=== PATIENT | female | born 1990 | race Caucasian/White ===

== ENCOUNTER 2017-08-16 17:12 | Emergency (ER) | payer OTHER ==
[~2017-08-16] VITALS: Ht 160 cm; Wt 79.8 kg
[2017-08-16 17:15] VITALS: Ht 160 cm; Wt 79.8 kg
[2017-08-16 18:02] VITALS: BP 144/98
== END 2017-08-16 18:02 | disposition home or self-care (01) ==
LOC: ED 17:12
DX: F41.1 Generalized anxiety disorder (principal); M54.6 Pain in thoracic spine
CPT/HCPCS: 82962; Q0092